=== PATIENT | female | born 1945 | race Caucasian/White ===

== ENCOUNTER 2019-09-20 10:10 | Outpatient (CLI) | payer MEDICARE, OTHER | END 2019-09-20 23:59 | disposition home or self-care (01) | LOC: COV 10:10 | PROVIDERS: ATTEND Family Medicine | DX: M79.10 Myalgia, unspecified site (principal); R53.83 Other fatigue; J02.9 Acute pharyngitis, unspecified; J34.89 Other specified disorders of nose and nasal sinuses; Z20.828 Contact with and (suspected) exposure to other viral communicable diseases ==

== ENCOUNTER 2020-08-19 14:05 | Outpatient (CLI) | payer MEDICARE, OTHER ==
--- NOTE | 2020-08-21 16:33 | DEXA Report ---
PROCEDURE: Dexa Spine and/or Hip INDICATIONS: OSTEOPENIA TECHNIQUE: Dual energy x-ray absorptiometry (DXA) was performed on a [employer]. Regions measur ed are the AP Spine, femoral neck, and if needed forearm. COMPARISON: Prior DEXA of 12/16/2014 is unable to be compared secondary to different imaging paramete rs. FINDINGS: Lumbar Spine: Bone Mineral Density 1.175 g/cm/cm,T score 0, normal Left Hip: Bone Mineral Density 0.739 g/cm/cm,T score -2.1, moderate to severe osteopenia Left Femoral Neck: Bone Mineral Density 0.741 g/cm/cm, T score -2.1, moderate to severe osteopenia (T score greater or equal to -1.0: NORMAL) (T score from -1.1 to -2.4: OSTEOPENIA) (T score less than or equal to -2.5 to: OSTEOPOROSIS) Impression: Moderate to severe osteopenia in the left hip and femoral neck subjectively progressive c ompared to prior exam. Patients with diagnosis of osteoporosis or osteopenia should have regular bone mineral density assess ment. For those eligible for Medicare, routine testing is allowed once every 2 years. Testing frequ ency can be increased for patients who have rapidly progressing disease or for those who are receivin g medical therapy to restore bone mass. Reviewed by: Erinn Dent MD on 08/19/2020 3:11 PM PDT Approved by: Erinn Dent MD on 08/19/2020 3:11 PM PDT Station ID: [id number]
== END 2020-08-19 14:06 | disposition home or self-care (01) ==
LOC: DI 14:05
PROVIDERS: ATTEND Physician Assistant
DX: M85.88 Other specified disorders of bone density and structure, other site (principal); Z78.0 Asymptomatic menopausal state; R22.42 Localized swelling, mass and lump, left lower limb

== ENCOUNTER 2020-08-19 14:27 | Outpatient (CLI) | payer MEDICARE, OTHER ==
--- NOTE | 2020-08-19 16:18 | Ultrasound Report ---
PROCEDURE: Ext Limited Non Vascular INDICATIONS: LEFT LEG MASS TECHNIQUE: Real-time scanning was performed of the left lateral mid thigh, with image documentation. COMPARISON: None. FINDINGS: Multiple grayscale and color Doppler images of the patient directed palpable area of roman rn were acquired. This localized to the lateral, mid left thigh. There is an oval, 1.4 x 0.7 x 1.0 cm isoechoic to subcutaneous fat mass underlying the area of concern. This mass is parallel to the skin surface. No internal vascularity. No invasion into the underlying fascia or musculature. No internal vascularity. IMPRESSION: There is a 1.4 cm subcutaneous soft tissue mass correlating with palpable area of concer n which demonstrates imaging characteristics of a lipoma. Recommend continued clinical surveillance. Reviewed by: Henok Park MD on 08/19/2020 4:17 PM PDT Approved by: Henok Park MD on 08/19/2020 4:17 PM PDT Station ID: [id number]
== END 2020-08-19 14:28 | disposition home or self-care (01) ==
LOC: DI 14:27
PROVIDERS: ATTEND Physician Assistant
DX: R22.42 Localized swelling, mass and lump, left lower limb (principal)

== ENCOUNTER 2022-07-29 10:15 | Outpatient (CLI) | payer MEDICARE, OTHER ==
--- NOTE | 2022-07-29 18:20 | DEXA Report ---
PROCEDURE: Dexa Spine and/or Hip INDICATIONS: POST MENOPAUSAL TECHNIQUE: Dual energy x-ray absorptiometry (DXA) was performed on a [employer] System. Regions measur ed are the AP Spine, femoral neck, and if needed forearm. COMPARISON: 08/19/2020 FINDINGS: Lumbar Spine: Bone Mineral Density 1.132 g/cm/cm,T score -0.4. Previously 0 Left Femoral Neck: Bone Mineral Density 0.713 g/cm/cm, T score -2.3. Previously -2.1 Left Hip: Bone Mineral Density 0.716 g/cm/cm,T score -2.3. Previously -2.1 (T score greater or equal to -1.0: NORMAL) (T score from -1.1 to -2.4: OSTEOPENIA) (T score less than or equal to -2.5 to: OSTEOPOROSIS) Impression: Worsening osteopenia Patients with diagnosis of osteoporosis or osteopenia should have regular bone mineral density assess ment. For those eligible for Medicare, routine testing is allowed once every 2 years. Testing frequ ency can be increased for patients who have rapidly progressing disease or for those who are receivin g medical therapy to restore bone mass. Reviewed by: Henry White MD on 07/29/2022 5:19 PM HARDEEP Approved by: Henry White MD on 07/29/2022 5:19 PM HARDEEP Station ID: [id number]
== END 2022-07-29 10:16 | disposition home or self-care (01) ==
LOC: DI 10:15
PROVIDERS: ATTEND Physician Assistant
DX: N95.8 Other specified menopausal and perimenopausal disorders (principal); M85.80 Other specified disorders of bone density and structure, unspecified site

== ENCOUNTER 2022-08-23 07:55 | Outpatient (CLI) | payer MEDICARE, OTHER ==
--- NOTE | 2022-08-23 13:52 | Ultrasound Report ---
PROCEDURE: Abdomen Limited INDICATIONS: RUQ PAIN TECHNIQUE: Real-time focused scanning was performed of the abdomen, with image documentation. COMPARISONS: None. FINDINGS: Liver: Liver is normal in size and homogeneous in echotexture. Gallbladder: Unremarkable. Biliary ducts: Intrahepatic bile ducts are non-dilated. Extrahepatic bile duct caliber measures 4 m m. Normal is 6-7 mm or less in diameter, or 10 mm or less post-cholecystectomy. Pancreas: Visualized portions of the pancreas are sonographically normal. Right kidney: Normal in size and echotexture. Right kidney measures 10.8 cm long. No hydronephrosis or nephrolithiasis. No solid masses. No complex renal cystic lesions which require follow-up. Aorta: Visualized aorta is normal in caliber at less than 3 cm. IVC: Intrahepatic inferior vena cava is patent. Miscellaneous: No free abdominal fluid. IMPRESSION: No cholelithiasis or evidence of acute cholecystitis. Reviewed by: Kendrick Mclean MD on 08/23/2022 1:50 PM PDT Approved by: Kendrick Mlcean MD on 08/23/2022 1:50 PM PDT Station ID: [id number]
== END 2022-08-23 07:56 | disposition home or self-care (01) ==
LOC: DI 07:55
PROVIDERS: ATTEND Internal Medicine
DX: R10.11 Right upper quadrant pain (principal)